=== PATIENT | female | born 1945 | race Caucasian/White ===

== ENCOUNTER 2018-07-27 08:12 | Inpatient (IN) ==
[2018-07-27] MEDS ORDERED: Metoprolol Tartrate 25 MG Tablet PO ONE (08:46)
[2018-07-27] MEDS ORDERED: Chlorhexidine Gluconate 2% 1 Pack (2 Cloths) TOPICAL ONE (08:46)
[2018-07-27] MEDS ORDERED: Dexamethasone Inj 20 MG/5 ML Vial ONE (08:57)
[2018-07-27] MEDS ORDERED: Sodium Chlor 0.9% Inj 250 ML ONE (08:57)
[2018-07-27] MEDS ORDERED: ceFAZolin 2 GM Premix Inj 2 GM/50 ML PIGGYBACK IV.SIG SCH (09:00)
[2018-07-27] MEDS ORDERED: Dexamethasone Inj 20 MG/5 ML Vial IV.PUSH SCH (09:00)
[2018-07-27] MEDS ORDERED: Sodium Chlor 0.9% Inj 500 ML IV.SIG SCH (09:00)
[2018-07-27] MEDS ORDERED: Chlorhexidine 4% Topical 120 APPLIC/120 ML Bottle TOPICAL SCH (09:00)
[2018-07-27] MEDS ORDERED: TRANEXAMIC ACID IV.SIG SCH (09:00)
[2018-07-27] MEDS ORDERED: Sodium Chlor 0.9% Inj 73.07 ML, Ropivacaine 0.5% PF Inj 24.63 ML, Ketorolac Inj 30 MG, ... P-ARTICULR SCH ×5 (09:00)
[2018-07-27] MEDS ORDERED: Vancomycin Inj 1,000 MG in Sodium Chlor 0.9% Inj 250 ML IV.SIG SCH (09:00)
[2018-07-27] MEDS ORDERED: SODIUM CHLOR 0.9% IV.SIG SCH (09:00)
[2018-07-27] MEDS ORDERED: HYDROmorphone PF Inj 2 MG/ML Vial ONE (11:10)
[2018-07-27] MEDS ORDERED: Lidocaine PF 1% Inj 5 ML Syringe OTHER ONE (11:15)
[2018-07-27] MEDS ORDERED: Bisacodyl 10 MG Supp RECTAL PRN (13:01)
[2018-07-27] MEDS ORDERED: Aluminum/Magnesium/Simethacone Susp 30 ML UDC PO PRN (13:01)
[2018-07-27] MEDS ORDERED: SODIUM CHLOR 0.9% IV.SIG ONE (13:01)
[2018-07-27] MEDS ORDERED: Morphine Inj 4 MG/ML Vial IV.PUSH PRN (13:01)
[2018-07-27] MEDS ORDERED: TRANEXAMIC ACID IV.SIG ONE (13:01)
[2018-07-27] MEDS ORDERED: Post-op Orders (for Pharmacy) OTHER STA (13:01)
--- NOTE | 2018-07-27 13:04 | P.OP ---
- Preoperative Diagnosis (1) Osteoarthritis of right knee - Postoperative Diagnosis (1) Osteoarthritis of right knee Date of procedure: 07/27/18 Procedure: Right total knee arthroplasty [facility], [facility] Surgeon: Simeon Mckoy MD [facility] Nurse Staff: NOAH Liu The surgical procedure was assisted by my Advanced Registered Nurse Practitioner. My ACTION INSTALLER presence was necessary throughout this case for the manipulation and positioning of the surgical extremity. My ACTION INSTALLER was assisting me throughout the duration of this procedure. The skill set of an Advance Registered Nurse Practitioner was medically necessary to complete this procedure. During the surgical case, the surgical dental assistant was working at the back table and the Advance Registered Nurse Practitioner was directly assisting me. Operation and Findings: IMPLANTS: DePuy Attune: Patella: size 32. Femur, posterior stabilized size 5. Tibia, rotating platform size 4. Tibial insert, rotating platform, posterior stabilized size 5 mm thickness. ESTIMATED BLOOD LOSS: 125 cc TOURNIQUET TIME: 40 minutes at 250 mmHg pressure. JUSTIFICATION FOR PROCEDURE: The patient has end-stage osteoarthritis to the knee. There is an attached conservative measures pathway form in the chart that describes the nonoperative measures that were undertaken prior to consideration of surgical management. The patient understood the risks and benefits of surgical management. See my office notes for further details PROCEDURE: The patient was brought back to the operative theatre. Adequate anesthesia was obtained. The patient received intravenous vancomycin and Ancef. The lower extremity was prepped and draped in the usual sterile fashion.The leg was exsanguinated, the tourniquet was raised. A standard anterior incision was performed followed by medial parapatellar arthrotomy was performed. End-stage arthritis was identified. Osteotomy of the patella was performed. We drilled holes for the patella. We trialed the patella component. We placed an intramedullary guide into the distal femur. We ultimately resected 11 mm off of the distal femur in 5 degrees of valgus. The remnants of the ACL and PCL were resected. Osteotomy of the proximal tibia was performed, resecting 5 mm off of the medial side. This was done with 3 degrees of posterior slope using an extramedullary guide. The distal end of the guide was placed in the mid aspect of the ankle. The femur was sized, and four chamfer cuts were completed in 3 of external rotation. We then cut the central box in the distal femur to replace the PCL. We resected the remnants of the menisci and removed osteophytes off of the femur and tibia. We then trialed the knee. We punched the tibia for the keel, and then used standard technique to cement in components. Excess cement was removed. We trialed the knee again and the final polyethylene thickness was chosen to provide extension to 0 degrees, and flexion of 140 degrees to gravity. The ligaments were appropriately balanced. Lateral release was necessary to obtain excellent patellofemoral tracking. The tourniquet was released and adequate hemostasis was obtained. An intra- articular injection of a ropivacaine cocktail was injected. The posterior knee was inspected for excess cement, which was removed. The final polyethylene was put into position after thorough irrigation. We then closed deep fascia with a #2 Stratafix followed by skin with 2-0 Vicryl followed by Dermabond dressing. Postop plan is to weight-bear as tolerated. DVT prophylaxis will be performed with SCDs, SARAH norton, early mobilization, and Lovenox followed by aspirin.
[2018-07-27] MEDS ORDERED: fentaNYL Citrate Inj 100 MCG/2 ML Ampul ONE (13:34)
[2018-07-27] MEDS ORDERED: *morphine SULFATE 4 MG/ML PERIprocedure ONLY ONE ×2 (13:43→14:26)
[2018-07-27] MEDS: Sod Chloride 0.9% Inj 1,000 ML IV.CONT SCH (13:45)
--- NOTE | 2018-07-27 15:14 | XR ---
EXAM DATE: 07/27/2018 1:01 PM EDT AGE/SEX: 73 years / Female INDICATIONS: Post op right knee surgery. CLINICAL DATA: This is the patient's initial encounter. Patient reports that signs and symptoms have been present for 1 day and indicates a pain score of 0/10. MEDICAL/SURGICAL HISTORY: None. None. COMPARISON: No prior exams available for comparison. FINDINGS: Two views of the knee reveal a total knee prosthesis in good position. No fracture or dislocation is observed. Soft tissues are unremarkable. No joint effusion is seen. Air is seen within the joint. CONCLUSION: Total knee arthroplasty in good position. Electronically signed by: Christiano Paiz MD 07/27/2018 3:13 PM EDT
--- NOTE | 2018-07-27 15:40 | P.DCO ---
- Physical Therapy Physical Therapy: Gait training, Transfer training, bed to chair Knee: Total knee Right Lower Extremity Weight Bearing: Weight bearing as tolerated Right Lower Extremity Range of Motion: Active ROM - Nursing Nursing: Capo rodriguez Dressing changes: Do not change dressing Additional instructions: First dressing change in the office - Certification Need for Home Health services: I have seen patient Lala Rachel on 07/27/18. My clinical findings support the need for the requested home health care services because: Need for Home Health Services: Limited ability to care for self, High risk of falls Homebound Certification: I certify that my clinical findings support that this patient is homebound because: Homebound Certification: Post-op weakness, Unsteady gait/balance
[2018-07-27] MEDS ORDERED: Influenza (Quadrivalent) Vaccine 0.5 ML Syringe IM ONE (17:30)
[2018-07-27] MEDS: Senna/Docusate Sodium 8.6/50 MG Tablet PO SCH (20:16)
[2018-07-27] MEDS: Multivitamin/Minerals Therapeutic Tablet PO SCH (20:21)
[2018-07-27] MEDS ORDERED: Zolpidem Tartrate 5 MG Tablet PO PRN (21:00)
[2018-07-28] MEDS: Sod Chloride 0.9% Inj 1,000 ML IV.CONT SCH (03:14)
[2018-07-28 07:08] LABS: Hemoglobin 11.1 gm/dL (11.6-15.3)
--- NOTE | 2018-07-28 07:19 | P.PNOP ---
Subjective Interval history: The patient is resting comfortably in bed in no acute distress. The patient reports minimal pain to the right knee. The patient has been ambulatory. The patient is requesting to go home today with home health. Physical Exam Vital signs: Vital Signs 07/27/18 09:08 07/27/18 09:19 07/27/18 13:28 Temperature 98.7 F 98.5 F Pulse Rate 75 74 95 H Respiratory Rate 18 10 L Blood Pressure 177/93 H 147/82 H Pulse Oximetry 98 99 94 L 07/27/18 13:30 07/27/18 13:45 07/27/18 14:00 Temperature Pulse Rate 95 H 91 H 91 H Respiratory Rate 12 12 11 L Blood Pressure 141/76 H 147/81 H 140/77 Pulse Oximetry 94 L 92 L 92 L 07/27/18 14:15 07/27/18 14:30 07/27/18 14:45 Temperature Pulse Rate 117 H 118 H 114 H Respiratory Rate 13 12 13 Blood Pressure 141/84 H 138/84 137/82 Pulse Oximetry 92 L 93 L 93 L 07/27/18 15:00 07/27/18 15:15 07/27/18 15:30 Temperature 98.7 F Pulse Rate 112 H 115 H 110 H Respiratory Rate 15 20 11 L Blood Pressure 132/81 136/84 152/91 H Pulse Oximetry 93 L 95 94 L 07/27/18 15:45 07/27/18 16:36 07/27/18 16:48 Temperature 97.2 F L Pulse Rate 108 H 104 H Respiratory Rate 16 14 Blood Pressure 150/80 H 151/93 H Pulse Oximetry 95 94 L 07/27/18 18:53 07/28/18 00:00 07/28/18 04:00 Temperature 97.1 F L 97.5 F L 97.2 F L Pulse Rate 104 H 89 81 Respiratory Rate 16 18 17 Blood Pressure 156/96 H 155/91 H 153/82 H Pulse Oximetry 95 96 94 L Intake & Output 07/27/18 07/28/18 07/28/18 18:59 06:59 18:59 Intake Total 1687.6 / 1687.6 1200 / 1200 Output Total 100 / 100 Balance 1587.6 / 1587.6 1200 / 1200 Weight 76 kg Intake: IV 207.6 / 207.6 1200 / 1200 NS Inj 1,000 ML @ 80 mls/hr IV. 1000 / 1000 CONT .[id number] ON LICENSE OF [facility] Rx#:[id number] Cyklokapron Inj 760 MG In NS 107.6 / 107.6 Inj 100 ML @ 200 mls/hr IV.SIG ONCE ONE Rx#:[id number] Ancef Inj 1,000 MG In NS Inj 100 / 100 200 / 200 100 ML @ 200 mls/hr IV.SIG Q6H ON LICENSE OF [facility] Rx#:[id number] Oral 480 / 480 Anesthesia Amount 1000 / 1000 Output: Estimated Blood Loss 100 / 100 Other: # Voids 1 4 Date of Last Bowel Movement 07/26/18 07/26/18 07/26/18 # Bowel Movements 0 Weight On Admission 76 kg Narrative: The patient's dressing is clean, dry, and intact. EHL/TA/G are intact. 2+ pedal pulse. The patient's calf is soft and nontender. Sensation is intact to light touch distally. Results - Labs CBC & Chem 7: 07/28/18 04:40 Laboratory Results - last 24 hr 07/27/18 07/28/18 08:45 04:40 Hgb 11.1 L Hct 35.0 Blood Type O Positive Blood Type Recheck Required Antibody Screen Negative - Imaging Impressions Knee X-Ray 07/27/18 13:01 CONCLUSION: Total knee arthroplasty in good position. - Procedures Right total knee arthroplasty Assessment and Plan - Problem List (1) Status post total knee replacement, right Code(s): Z96.651 - Presence of right artificial knee joint Status: Acute (2) Osteoarthritis of right knee Code(s): M17.11 - Unilateral primary osteoarthritis, right knee Status: Acute - Assessment and Plan POD #1: [Right] total knee arthroplasty 1. Weightbearing as tolerated on [right] lower extremity. 2. Lovenox followed by aspirin for DVT prophylaxis. 3. Ice as needed for swelling. 4. Stable per ortho for discharge to home health today after class. 5. The patient will follow up with Dr. Mckoy and/or NOAH Hogan as previously scheduled.
[2018-07-28] MEDS ORDERED: Dexamethasone Inj 20 MG/5 ML Vial IV.PUSH ONE (08:00)
[2018-07-28] MEDS: Multivitamin/Minerals Therapeutic Tablet PO SCH (08:02)
[2018-07-28] MEDS: Senna/Docusate Sodium 8.6/50 MG Tablet PO SCH (08:02)
[2018-07-28] MEDS ORDERED: Lisinopril 20 MG Tablet PO SCH (09:00)
[2018-07-28] MEDS ORDERED: Pantoprazole Sodium 20 MG DR Tablet PO SCH (09:00)
[2018-07-28 12:11] VITALS: BP 166/73; PULSE 87; TEMP 97.7; O2SAT 92
[2018-07-28 12:57] VITALS: RESP 18
[2018-07-28] MEDS ORDERED: Enoxaparin Inj 40 MG/0.4 ML Syringe SQ SCH (13:00)
--- NOTE | 2018-07-29 09:57 | P.DS ---
Date of admission: 07/27/18 08:12 Primary care physician: Margarito Mclean MD Attending physician on discharge: Simeon Mckoy Anticipated date of discharge: 07/28/18 Brief History from admission: The patient was admitted to the hospital for severe osteoarthritis of the right knee to have a right total knee arthroplasty. DS: Diagnosis - Discharge Diagnosis (1) Status post total knee replacement, right Status: Acute (2) Osteoarthritis of right knee Status: Acute DS: Summary Hospital Course: The patient was admitted to the hospital for severe osteoarthritis of the [right ] knee to have a [right] total knee arthroplasty. The patient's surgery went well with no complication. The patient is on a [regular] diet. The patient's DVT prophylaxis includes use of [Lovenox followed by aspirin]. The patient is weightbearing as tolerated. The patient was discharged [home with home health] and will follow up in the office with Dr. Mckoy and/or NOAH Hogan as previously scheduled. - Time Spent with Patient Total time spent providing and/or coordinating discharge services: Greater than 30 minutes - Quality: VTE Deep Vein Thrombosis/Pulmonary Embolism Present on Admission: No Exam Vital signs: Vital Signs 07/28/18 12:00 07/28/18 12:34 Temperature 97.7 F Pulse Rate 87 Respiratory Rate 21 18 Blood Pressure 166/73 H Pulse Oximetry 92 L Intake & Output 07/28/18 07/29/18 07/29/18 18:59 06:59 18:59 Other: Date of Last Bowel Movement 07/26/18 Narrative: The patient's dressing is clean, dry, and intact. EHL/TA/G are intact. 2+ pedal pulse. The patient's calf is soft and nontender. Sensation is intact to light touch distally. Results Procedures completed during hospitalization: Right total knee arthroplasty - Impressions ITS Impressions Knee X-Ray 07/27/18 13:01 CONCLUSION: Total knee arthroplasty in good position. Discharge Plan - Discharge Disposition Patient Disposition: W/Home Health Service - Discharge Condition Condition: Stable - Discharge Order Discharge Orders: Discharge Order (Routine); Ordered 07/27/18 Ordered By: Guanako Trinidad - Discharge Details Anticipated Discharge Date: 07/28/18 - Physicians Team Primary Care Provider: Margarito Mclean Attending Provider: Simoen Mckoy - Rxs /Orders / Referrals /Forms Prescriptions: Continue ascorbic acid (vitamin C) [Vitamin C] 500 mg Tablet 500 mg PO DAILY atorvastatin 20 mg Tablet 20 mg PO HS cholecalciferol (vitamin D3) [Vitamin D3] 5,000 unit Tablet 5,000 unit PO DAILY lisinopril 20 mg Tablet 20 mg PO DAILY multivitamin Tablet 1 tab PO DAILY omeprazole 20 mg Capsule,Delayed Release(Dr/Ec) 20 mg PO DAILY vitamin B complex Tablet 1 tab PO DAILY Discontinued aspirin 325 mg Tablet 325 mg PO DAILY Ambulatory Orders / Order Sets / DME: Adjustable Commode 3-in-1 (1 each) (Routine) Location: Determined by Patient Ordered By: Guanako Trinidad CPM - Continuous Passive Motion Machine (1 each) (Routine) Location: Determined by Patient Ordered By: Guanako Trinidad Walker With Front Wheels (1 each) (Routine) Location: Determined by Patient Ordered By: Guanako Trinidad Referrals: Margarito Mclean MD [Primary Care Provider] - See Instructions Simeon Mckoy MD [Physician] - See Instructions (The patient should follow with Dr. Mckoy or Bassam Trinidad APRN as previously scheduled) - Discharge Instructions Patient Printed Instructions: How to Choose and Use a Walker (GEN), Fall Prevention (DC), Knee Replacement (DC), How to Transfer a Person Safely (DC), Deep Vein Thrombosis Prevention (DC) Additional Instructions: TAKE MEDICATIONS PRESCRIBED FOLLOW UP WITH SCHEDULED IN CASE OF EMERGENCY CALL 911 OR RETURN TO [facility] - Post Discharge Care Plan Care Plan Goals: Discharge Care Plan Goals for Total Knee Replacement You have undergone knee replacement surgery. Your doctor replaced your painful joint with an artificial joint to relieve pain and restore movement. Here are some goals to help you heal well. Directions to Meet your Goals: 1. Activity & Exercises: * Take pain medicine as directed by your doctor. * Sit in chairs with arms. The arms make it easier for you to stand up or sit down. * Dont sit for more than 30 to 45 minutes at one time. * Nap if you are tired, but dont stay in bed all day. * Sleep with a pillow under your ankle, not your knee. Be sure to change the position of your leg during the night. * Wear the support stockings you were given in the hospital as directed by your surgeon. 2. Prevent Falls/Injury: The aceves to successful recovery is movement with walking and exercising your knee as directed by your doctor. * Arrange your household to keep the items you need handy. Keep everything else out of the way. * Remove items that may cause you to fall, such as throw rugs and electrical cords. * Use nonslip bath mats, grab bars, an elevated toilet seat, and a shower chair in your bathroom * Sit on a shower stool or chair when you shower to keep from falling. * Until your balance, flexibility, and strength improve, use a cane, crutches, a walker, handrails, or someone to help you. * Keep your hands free by using a backpack, zaid pack, apron, or pockets to carry things * Walk up and down stairs with support. Try one step at a time. Use the railing if possible. * Dont drive until your doctor says its OK. * Dont drive while you are taking opioid pain medicine. 3. Precautions: * Prevent infection. Any infection will need to be treated immediately. Call your doctor right away if you think you might have an infection. * Tell your dentist that you have an artificial joint and take antibiotics as prescribed before any dental work. * Tell all your healthcare providers about your artificial joint before any medical procedure. * Maintain a healthy weight. Get help to lose any extra pounds. Added body weight puts stress on the knee. * Your medications may include blood-thinning medicine to prevent blood clots or antibiotics to prevent infection-prevent any falls or cuts 4. Incision Care: * Prevent infection by washing your hands often. If an infection occurs, it will need to be treated right away. * Call your doctor right away if you think you may have an infection. Symptoms include a fever or an incision that leaks white, green, or yellow fluid. * Don't soak your incision in water until your doctor says its OK. This means no hot tubs, bathtubs, or swimming pools. * Follow your doctor's instructions for changing the dressing. * Dont rub the incision, or apply creams or lotions to it. * If you notice any redness or drainage around the bandage site, contact your surgeon's office immediately. 5. Follow-Up: Do Not miss your follow-up appointment. Keep up with all your appointments and yearly check ups When to call your doctor: Call your doctor right away if you have: Fever of 100.4F (38C) or higher, or as directed by your doctor Shaking chills Stiffness, or inability to move the knee Increased swelling in your leg Increased redness, tenderness, or swelling in or around the knee incision Drainage from the knee incision Increased knee pain Call 911: Call 911 right away if you have: Chest pain Shortness of breath Any pain or tenderness in your calf
== END 2018-07-28 14:08 | disposition home health service (06) ==
LOC: HSDI 08:12 → N06 16:20
PROVIDERS: ADMIT Orthopaedic Surgery; ATTEND Orthopaedic Surgery

== ENCOUNTER 2018-07-30 09:18 | Observation (INO) ==
[2018-07-30] MEDS ORDERED: Sod Chloride 0.9% Inj 1,000 ML IV.SIG ONE (10:07)
[2018-07-30] MEDS ORDERED: Diatrizoate Meglum/Diatrizoate Sod Liq 9 ML UDC PO ONE ×2 (10:37→10:38)
--- NOTE | 2018-07-30 10:41 | ED ---
HPI General Chief Complaint: Abdominal Pain Stated Complaint: full knee replacment x wednesday-constipation Time Seen by Provider: 07/30/18 09:48 Source: patient and family Mode of arrival: ambulatory Limitations: no limitations History of Present Illness HPI narrative: Patient is a 73-year-old female who presents to the emergency room with complaints of constipation and abdominal pain. Patient reports that on Wednesday, she had a right total knee replacement by Dr. Schwartz. Patient has been taking hydrocodone 5 mg for pain relief. Patient reports that for the past few days, she has had problems with constipation. Reports that she last had a bowel movement on Wednesday. Patient normally has a normal bowel movement every day. Patient reports that she called Dr. Schwartz's office and was told to start on Dulcolax as well as Colace, she did start this yesterday with no relief of symptoms. Patient did take MiraLAX this morning, reports that she was also instructed to take Prune juice as well as milk of magnesia, but has not been able to keep anything down. Reports that she did feel nauseous and she ended up vomiting her MiraLAX. Patient reports diffuse abdominal pain, reports history of an appendectomy in the past as well as a hysterectomy. Denies fever/ chills. No other complaints. Related Data Home Medications Medication Instructions Recorded Confirmed ascorbic acid (vitamin C) [Vitamin 500 mg PO DAILY 07/11/18 07/30/18 C] atorvastatin 20 mg PO HS 07/11/18 07/30/18 cholecalciferol (vitamin D3) 5,000 unit PO DAILY 07/11/18 07/30/18 [Vitamin D3] lisinopril 20 mg PO DAILY 07/11/18 07/30/18 multivitamin 1 tab PO DAILY 07/11/18 07/30/18 omeprazole 20 mg PO DAILY 07/11/18 07/30/18 vitamin B complex 1 tab PO DAILY 07/11/18 07/30/18 enoxaparin [Lovenox] 40 mg SUBCUT DAILY 07/30/18 07/30/18 hydrocodone-acetaminophen 1 tab PO Q4-6H PRN 07/30/18 07/30/18 Allergies Allergy/AdvReac Type Severity Reaction Status Date / Time codeine AdvReac Severe Shortness Verified 07/30/18 09:45 of Breath Review of Systems ROS: all other systems reviewed are negative [facility] History History Provided By: Patient Medical History Medical History GERD (gastroesophageal reflux disease) (Acute) High cholesterol (Acute) History of hysterectomy (Acute) Hypertension (Acute) Rotator cuff arthropathy of right shoulder (Acute) Surgical History Surgical History H/O arthroscopy of right knee (Acute) H/O bilateral breast reduction surgery (Acute) History of appendectomy (Acute) History of carpal tunnel release (Acute) History of surgery on arm (Acute) Hx of tonsillectomy (Acute) Status post cataract extraction of both eyes with insertion of intraocular lens (Acute) Social History Social History Substance History: No History of Abuse Second Hand Smoke Exposure: No Smoking Status: Former smoker How Often Do You Have a Drink Containing Alcohol: 2 to 3 times a week Recent Travel in [facility] within the Last 8 Weeks: No Recent Out of Country Travel within the Last 8 Weeks: No Exam Narrative Exam Narrative: GENERAL: Moderate distress SKIN: Focused skin assessment warm/dry. HEAD: Atraumatic. Normocephalic. EYES: Pupils equal and round. No scleral icterus. No injection or drainage. ENT: No nasal bleeding or discharge. Mucous membranes pink and moist. NECK: Trachea midline. No JVD. CARDIOVASCULAR: Regular rate and rhythm. No murmur appreciated. RESPIRATORY: No accessory muscle use. Clear to auscultation. Breath sounds equal bilaterally. GASTROINTESTINAL: Abdomen soft, diffusely-tender, nondistended. Hepatic and splenic margins not palpable. Rectal exam: no stool in rectal vault - no fecal impaction MUSCULOSKELETAL: No obvious deformities. No clubbing. No cyanosis. No edema. NEUROLOGICAL: Awake and alert. No obvious cranial nerve deficits. Motor grossly within normal limits. Normal speech. PSYCHIATRIC: Appropriate mood and affect; insight and judgment normal. Course Reevaluation(s) Reevaluation #1: Patient reevaluated, patient unable to hold down the Gastrografin. Patient with continuous nausea and vomiting with abdominal pain. Patient with no allergy to morphine, she has tolerated this in the past. Patient will be given a dose of morphine as well as a dose of Zofran. Time: 11:28 Initial Documented Vital Signs Temperature 98.9 F 07/30/18 09:40 Pulse Rate 83 07/30/18 09:40 Respiratory Rate 16 07/30/18 09:40 Blood Pressure 143/76 H 07/30/18 09:40 Pulse Oximetry 94 L 07/30/18 09:40 Last Documented Vital Signs Temperature 98.9 F 07/30/18 09:40 Pulse Rate 114 H 07/30/18 11:05 Respiratory Rate 16 07/30/18 11:05 Blood Pressure 161/108 H 07/30/18 11:05 Pulse Oximetry 92 L 07/30/18 11:05 Medical Decision Making MDM Narrative Medical decision making narrative: During the course of the patients emergency department visit, the patients history, examination, and differential diagnosis were reviewed with the patient. The patient was placed on a shelter monitor with oximetry and frequent blood pressure monitoring. The patient had an IV access obtained and blood work sent for analysis. The patient was initially provided IVF as well as gastrograffin and IV zofran Patient now tachycardic with a HR of 119 - wbc 21.6 - patient meets sirs criteria, she will be panculture, lactic acid ordered, vanco and zosyn ordered CT of the abdomen pelvis shows inflammatory stranding extending from the region of the pancreatic head inferiorly. There is no ductal dilation or peripancreatic fluid collections. Patient with mild pancreatitis. Patient's lipase is 66. She has small to moderate amount of stool in the rectum. There is no significant colonic stool or obstruction Patient is feeling mildly better though she does have SIRS criteria as well as mild pancreatitis. Plan to observe her in the hospital for IV fluids and antiemetics for pain control. I did review all labs and all studies as well as all incidental findings with patient, she is agreeable to admission to the hospital. Case reviewed with Dr. Morrell who accepts pt to service Medical Screen Exam Complete: Yes Emergency Medical Condition: Yes Differential Diagnosis Differential Diagnosis: Differential includes small bowel obstruction, sepsis, UTI, cholecystitis, fecal impaction, gastritis, gastritis, pancreatitis Medical Records Medical records reviewed: Yes I reviewed the patient's medical records. Lab Data Lab results reviewed: Yes I reviewed the patient's lab results. Result diagrams: 07/30/18 10:30 07/30/18 10:30 Lab Results 07/30/18 07/30/18 07/30/18 Range/Units 10:30 10:30 10:50 CBC w Diff Auto diff final WBC 21.6 H (4.0-11.0) th/mm3 RBC 3.39 L (4.00-5.30) mil/mm3 Hgb 11.3 L (11.6-15.3) gm/dL Hct 32.7 L (35.0-46.0) % MCV 96.2 (80.0-100.0) fL MCH 33.4 (27.0-34.0) pg MCHC 34.7 (32.0-36.0) % RDW 13.3 (11.6-17.2) % Plt Count 322 (150-450) th/mm3 MPV 9.2 (7.0-11.0) fL Neut % (Auto) 92.8 H (16.0-70.0) % Lymph % (Auto) 4.0 L (9.0-44.0) % [place] % (Auto) 2.1 (0.0-8.0) % Eos % (Auto) 0.0 (0.0-4.0) % Baso % (Auto) 1.1 (0.0-2.0) % Neut # (Auto) 20.0 H (1.8-7.7) th/mm3 Lymph # (Auto) 0.9 L (1.0-4.8) th/mm3 [place] # (Auto) 0.5 (0.0-0.9) th/mm3 Eos # (Auto) 0.0 (0.0-0.4) th/mm3 Baso # (Auto) 0.2 (0.0-0.2) th/mm3 WBC Differential . Differential Comment . Sodium 140 (136-145) meq/L Potassium 3.0 L (3.5-5.1) meq/L Chloride 98 (98-107) meq/L Carbon Dioxide 30.9 (21.0-32.0) meq/L Anion Gap 11 (5-15) meq/L BUN 9 (7-18) mg/dL Creatinine 0.59 (0.50-1.00) mg/dL Estimated GFR Greater than 89 (>89) mL/min Random Glucose 92 (74-106) mg/dL Calcium 8.1 L (8.5-10.1) mg/dL Total Bilirubin 0.9 (0.2-1.0) mg/dL AST 23 (15-37) U/L ALT 16 (10-53) U/L Alkaline Phosphatase 79 (45-117) U/L Total Protein 6.7 (6.4-8.2) g/dL Albumin 2.8 L (3.4-5.0) g/dL Lipase 66 L (73-393) U/L Urine Color Yellow (Yellw/Straw) Urine Clarity Clear (Clear) Urine pH 7.0 (5.0-8.5) Ur Specific [place] 1.010 (1.002-1.035) Urine Protein Negative (Neg-Trace) mg/dL Urine Glucose (UA) Negative (Negative) mg/dL Urine Ketones Negative (Negative) mg/dL Urine Occult Blood Trace (Negative) Urine Nitrate Negative (Negative) Urine Bilirubin Negative (Negative) Urine Urobilinogen 0.2 (Less than 2) mg/dL Ur Leukocyte Esterase Negative (Negative) Urine RBC 0-3 (0-3) /hpf Urine WBC 0-5 (0-5) /hpf Micro UA Comment Culture not ind Ur Microscopic Review Microscopic reviewed Urine Culture Comments Culture not ind Imaging Data Attestation: I personally reviewed and interpreted this imaging study as follows : Radiologist's impression: Abdomen/Pelvis CT 07/30/18 10:07 CONCLUSION: 1. Inflammatory stranding extending from the region the pancreatic head inferiorly. Pancreas enhances uniformly and there is no ductal dilatation or peripancreatic fluid collections. Findings are most consistent with mild pancreatitis. Clinical correlation with pancreatic enzymes is recommended. 2. Iwwho-iz-scbweqzv amount stool in the rectum. Otherwise, no evidence for significant colonic stool or obstruction. 3. Colonic diverticulosis without evidence for diverticulitis. Chest X-Ray 07/30/18 11:32 CONCLUSION: 1. No acute abnormality or significant interval change. Discharge Plan Discharge Disposition Patient Disposition: 30 Still Patient Discharge Condition Condition: Fair Discharge Details Diagnosis: SIRS (systemic inflammatory response syndrome), Increased nausea and vomiting, Acute pancreatitis, Acute hypokalemia Physicians Team ED Provider: Fariba Mock Primary Care Provider: Margarito Mclean Rxs /Orders / Referrals /Forms Prescriptions: No Action atorvastatin 20 mg Tablet 20 mg PO HS RF: 0 lisinopril 20 mg Tablet 20 mg PO DAILY RF: 0 omeprazole 20 mg Capsule,Delayed Release(Dr/Ec) 20 mg PO DAILY RF: 0 multivitamin Tablet 1 tab PO DAILY RF: 0 ascorbic acid (vitamin C) [Vitamin C] 500 mg Tablet 500 mg PO DAILY RF: 0 vitamin B complex Tablet 1 tab PO DAILY RF: 0 cholecalciferol (vitamin D3) [Vitamin D3] 5,000 unit Tablet 5,000 unit PO DAILY RF: 0 hydrocodone-acetaminophen 5-325 mg Tablet 1 tab PO Q4-6H PRN (Reason: Acute Pain) RF: 0 enoxaparin [Lovenox] 40 mg/0.4 mL Syringe 40 mg SUBCUT DAILY RF: 0 Status ED Status: With Doctor
[2018-07-30 11:00] LABS: Baso # (Auto) 0.2 th/mm3 (0.0-0.2); Baso % (Auto) 1.1 % (0.0-2.0); Hematocrit 32.7 % (35.0-46.0); Hemoglobin 11.3 gm/dL (11.6-15.3); Lymph # (Auto) 0.9 th/mm3 (1.0-4.8); Mean Corpuscular HGB Conc 34.7 % (32.0-36.0); Mean Corpuscular Hemoglobin 33.4 pg (27.0-34.0); Mean Corpuscular Volume 96.2 fL (80.0-100.0); Mean Platelet Volume 9.2 fL (7.0-11.0); Mono # (Auto) 0.5 th/mm3 (0.0-0.9); Mono % (Auto) 2.1 % (0.0-8.0); Neut % (Auto) 92.8 % (16.0-70.0); Platelet Count 322 th/mm3 (150-450); Red Blood Count 3.39 mil/mm3 (4.00-5.30); Red Cell Distribution Width 13.3 % (11.6-17.2); White Blood Count 21.6 th/mm3 (4.0-11.0)
[2018-07-30 11:01] LABS: Bilirubin,Urine Negative (Negative); Clarity,Urine Clear (Clear); Color,Urine Yellow (Yellw/Straw); Glucose,Urine (UA) Negative (Negative); Leukocyte Esterase,Urine Negative (Negative); Nitrite,Urine Negative (Negative); Urobilinogen,Urine 0.2 mg/dL (Less than 2)
[2018-07-30 11:02] LABS: Chloride 98 meq/L (98-107); Sodium 140 meq/L (136-145)
[2018-07-30 11:06] LABS: Albumin 2.8 g/dL (3.4-5.0); Anion Gap 11 meq/L (5-15); Blood Urea Nitrogen 9 mg/dL (7-18); Calcium 8.1 mg/dL (8.5-10.1); Carbon Dioxide 30.9 meq/L (21.0-32.0); Glucose,Random 92 mg/dL (74-106); Lipase 66 U/L (73-393)
[2018-07-30 11:08] LABS: RBC,Urine 0-3 /hpf (0-3); WBC,Urine 0-5 /hpf (0-5)
[2018-07-30 11:09] LABS: Alanine Aminotransferase 16 U/L (10-53); Aspartate Aminotransferase 23 U/L (15-37); Glomerular Filtration Rate Greater Than 89 mL/min (>89)
[2018-07-30 11:11] LABS: Total Protein 6.7 g/dL (6.4-8.2)
[2018-07-30 11:12] LABS: Alkaline Phosphatase 79 U/L (45-117)
[2018-07-30] MEDS ORDERED: Potassium Chlor 20 mEq Premix 20 MEQ/100 ML PIGGYBACK IV.SIG ONE (11:12)
[2018-07-30] MEDS ORDERED: Sod Chloride 0.9% Inj 1,000 ML IV.SIG SCH ×2 (11:15→12:15)
[2018-07-30] MEDS ORDERED: Morphine Sulfate Inj 2 MG/ML Vial IV.PUSH ONE (11:26)
--- NOTE | 2018-07-30 11:59 | XR ---
EXAM DATE: 07/30/2018 11:32 AM EDT AGE/SEX: 73 years / Female INDICATIONS: Free air, abdomen pain, constipation, knee replacement surgery 4 days ago CLINICAL DATA: This is the patient's initial encounter. Patient reports that signs and symptoms have been present for 4 - 6 days and indicates a pain score of 5/10. MEDICAL/SURGICAL HISTORY: None. . knee replacement COMPARISON: [facility], CHEST 2V PA&LAT, 07/11/2018. . FINDINGS: No new focal pleural or parenchymal opacities. The cardiomediastinal contours are unremarkable. Osse ous structures are intact. CONCLUSION: 1. No acute abnormality or significant interval change. Electronically signed by: Markie Rodriguez MD 07/30/2018 11:58 AM EDT
[2018-07-30] MEDS ORDERED: Piperacil/Tazo 3.375 GM Premix 50 ML IV.SIG ONE (12:12)
[2018-07-30] MEDS ORDERED: Vancomycin Inj 1,000 MG in Sodium Chlor 0.9% Inj 250 ML IV.SIG ONE (12:12)
--- NOTE | 2018-07-30 12:46 | CT ---
EXAM DATE: 07/30/2018 11:50 AM EDT AGE/SEX: 73 years / Female INDICATIONS: Abdomen pain and constipation CLINICAL DATA: This is the patient's initial encounter. Patient reports that signs and symptoms have been present for 3 days and indicates a pain score of 10/10. MEDICAL/SURGICAL HISTORY: Gastroesophageal reflux disease. Hypertension. Hysterectomy. Append ectomy. Tonsillectomy. ORAL CONTRAST: Partial prescribed oral contrast ingested. RADIATION DOSE: 15.50 CTDI (mGy) COMPARISON: No prior exams available for comparison. TECHNIQUE: Multiple contiguous axial images were obtained through the abdomen and pelvis following b olus infusion of 98ML ml Omnipaque 350 (iohexol) nonionic water-soluble contrast as a single exam d ose. Partial prescribed oral contrast ingested. Using automated exposure control and adjustment of t mA and/or kV according to patient size, radiation dose was kept as low as reasonably achievable to obtain optimal diagnostic quality images. DICOM format image data is available electronically for r eview and comparison. FINDINGS: LOWER LUNGS: Minimal groundglass opacities at the lung bases. LIVER: The liver has a homogeneous density without space-occupying lesion. There is no dilation of t biliary tree. No calcified gallstones. SPLEEN: Homogeneous density without enlargement. PANCREAS: There is ill-defined stranding extending from the region of the pancreatic head inferiorly . Pancreas demonstrates normal enhancement without significant ductal dilatation. Subcentimeter cysti c lesion in the inferior pole of the left kidney is too small to fully characterize. KIDNEYS: Kidneys demonstrate symmetrical enhancement and are symmetrical in size without evidence fo r radiopaque renal calculi or hydronephrosis. ADRENAL GLANDS: Unremarkable. AORTA: Marybel-aneurysmal. BOWEL/MESENTERY: Mild sigmoid diverticulosis. Femcs-qr-hajgfvds amount of stool in the rectum. Scatt ered colonic diverticula. Colon is otherwise unremarkable. Bowel loops are normal in caliber. No free fluid or drainable fluid collections. ABDOMINAL WALL: Intact. RETROPERITONEUM: No evidence of adenopathy in the retrocrural, para-aortic, or deep pelvic regions. BLADDER: Contours are smooth. REPRODUCTIVE: Uterus is surgically absent. BONY STRUCTURES: Degenerative spondylosis of the lower lumbar spine. CONCLUSION: 1. Inflammatory stranding extending from the region the pancreatic head inferiorly. Pancreas enhance s uniformly and there is no ductal dilatation or peripancreatic fluid collections. Findings are most consistent with mild pancreatitis. Clinical correlation with pancreatic enzymes is recommended. 2. Aordc-bt-vrnjnrxy amount stool in the rectum. Otherwise, no evidence for significant colonic stoo l or obstruction. 3. Colonic diverticulosis without evidence for diverticulitis. Electronically signed by: Markie Rodriguez MD 07/30/2018 12:45 PM EDT
[2018-07-30] MEDS ORDERED: Bisacodyl 10 MG Supp RECTAL PRN (16:03)
[2018-07-30] MEDS ORDERED: Acetaminophen 325 MG Tablet PO PRN (16:03)
[2018-07-30] MEDS ORDERED: Temazepam 15 MG Capsule PO PRN (16:03)
[2018-07-30] MEDS ORDERED: Naloxone Inj 0.4 MG/ML Vial IV.PUSH PRN (16:26)
--- NOTE | 2018-07-30 16:26 | P.HP ---
History of Present Illness Primary Care Physician: Margarito Mclean MD Chief Complaint: Abdominal pain/Nausea and vomiting History of Present Illness: 73-year-old who past medical history of hypertension who recently had right total knee replacement 07/27/18 presented to the ED acute abdominal pain with radiation to her back associated with nausea and vomiting. After patient underwent right total knee replacement, was discharged home on narcotics. Patient complained of constipation for which she was prescribed Dulcolax as well as Colace. Patient last bowel movement prior to today was on Wednesday. However while in the ED, patient had a bowel movement. A CT abdomen in the ED reveals mild pancreatitis despite normal lipase. Patient had elevated WBC but denies any febrile episode. She has no GI bleed. - Diagnosis (1) SIRS (systemic inflammatory response syndrome) (2) Increased nausea and vomiting (3) Acute pancreatitis (4) Acute hypokalemia (5) Status post total knee replacement, right PMFSH - History History Provided By: Patient - Medical History Medical History: Medical History (Last Reviewed 07/30/18 @ 10:47 by Fariba Mock) GERD (gastroesophageal reflux disease) High cholesterol History of hysterectomy Hypertension Rotator cuff arthropathy of right shoulder - Surgical History Surgical History: Surgical History (Last Reviewed 07/30/18 @ 10:47 by Fariba Mock) H/O arthroscopy of right knee H/O bilateral breast reduction surgery History of appendectomy History of carpal tunnel release History of surgery on arm Hx of tonsillectomy Status post cataract extraction of both eyes with insertion of intraocular lens - Family History Family History: Family History (Last Updated 07/30/18 @ 16:25 by Abdoul Morrell MD) Other No history of heart disease - Tobacco History Second Hand Smoke Exposure: No Smoking Status: Former smoker - Alcohol History How Often Do You Have a Drink Containing Alcohol: 2 to 3 times a week - Substance Use History Substance History: No History of Abuse - Travel History Recent Travel in the [place] Within the Last 8 Weeks: No Recent Travel Out of the Country Within the Last 8 Weeks: No - Immunization History Tetanus Immunization: >5 Years Medications and Allergies Active Medications: Active Medications Acetaminophen (Tylenol) 650 mg PO Q4H PRN PRN Reason: Temp > 100.4 Al Hydroxide/Mg Hydroxide (Milk Of Magnesia Liq) 30 ml PO Q12H PRN PRN Reason: Mild Constipation Atorvastatin Calcium (Lipitor) 20 mg PO HS JACLYN Bisacodyl (Dulcolax Supp) 10 mg RECTAL DAILY PRN PRN Reason: SEVERE CONSITIPATION Enalaprilat (Vasotec Inj) 2.5 mg IV.PUSH Q6H PRN PRN Reason: SBP>160, DBP>90 Enoxaparin Sodium (Lovenox Inj) 40 mg SQ DAILY JACLYN Sodium Chloride (Ns Inj) 1,000 mls @ 0 mls/hr IV.SIG BOLUS JACLYN Sodium Chloride (Ns Inj) 1,000 mls @ 0 mls/hr IV.SIG BOLUS JACLYN Last Infusion: 07/30/18 15:25 Dose: Infused Sodium Chloride (Ns Inj) 1,000 mls @ 100 mls/hr IV.CONT .Q10H JACLYN Lisinopril (Prinivil) 20 mg PO DAILY JACLYN Metoclopramide HCl (Reglan Inj) 5 mg IV.PUSH Q6HR PRN; Protocol PRN Reason: NAUSEA OR VOMITING Non-Formulary Medication (Omeprazole [Omeprazole]) 20 mg PO DAILY JACLYN Ondansetron HCl (Zofran Inj) 4 mg IV.PUSH Q6H PRN PRN Reason: NAUSEA OR VOMITING Pantoprazole Sodium (Protonix Inj) 40 mg IV.PUSH Q24H JACLYN Sodium Chloride (Ns Flush) 2 ml IV.FLUSH PRN PRN PRN Reason: FLUSH AFTER USING IV ACCESS Last Admin: 07/30/18 14:43 Dose: 2 ml Allergies Allergy/AdvReac Type Severity Reaction Status Date / Time codeine AdvReac Severe Shortness Verified 07/30/18 09:45 of Breath Home Medications Medication Instructions Recorded Confirmed Type ascorbic acid (vitamin C) [Vitamin 500 mg PO DAILY 07/11/18 07/30/18 History C] atorvastatin 20 mg PO HS 07/11/18 07/30/18 History cholecalciferol (vitamin D3) 5,000 unit PO DAILY 07/11/18 07/30/18 History [Vitamin D3] lisinopril 20 mg PO DAILY 07/11/18 07/30/18 History multivitamin 1 tab PO DAILY 07/11/18 07/30/18 History omeprazole 20 mg PO DAILY 07/11/18 07/30/18 History vitamin B complex 1 tab PO DAILY 07/11/18 07/30/18 History enoxaparin [Lovenox] 40 mg SUBCUT DAILY 07/30/18 07/30/18 History hydrocodone-acetaminophen 1 tab PO Q4-6H PRN 07/30/18 07/30/18 History Exam Vital signs: Vital Signs 07/30/18 09:40 07/30/18 10:35 07/30/18 10:45 Temperature 98.9 F Pulse Rate 83 112 H 119 H Respiratory Rate 16 16 Blood Pressure 143/76 H 173/94 H Pulse Oximetry 94 L 93 L 07/30/18 11:05 07/30/18 12:00 07/30/18 13:11 Temperature Pulse Rate 114 H 118 H 119 H Respiratory Rate 16 16 16 Blood Pressure 161/108 H 167/102 H Pulse Oximetry 92 L 93 L 07/30/18 13:30 07/30/18 14:00 07/30/18 14:41 Temperature Pulse Rate 105 H 110 H Respiratory Rate 16 16 16 Blood Pressure 166/77 H 173/87 H Pulse Oximetry 95 07/30/18 16:00 Temperature 98.9 F Pulse Rate 118 H Respiratory Rate 20 Blood Pressure 173/96 H Pulse Oximetry 94 L Intake & Output 07/29/18 07/30/18 07/30/18 18:59 06:59 18:59 Intake Total 2400 / 2400 Balance 2400 / 2400 Weight 78 kg Intake: IV 2400 / 2400 Zosyn 3.375 GM Premix 50 ML @ 50 / 50 100 mls/hr IV.SIG ONCE ONE Rx#: [id number] KCl 20 mEq Premix Inj 20 meq In 100 / 100 100 ml @ 50 mls/hr IV.SIG ONCE ONE Rx#:[id number] NS Inj 1,000 ML @ Wide Open IV. 1999 SIG BOLUS JACLYN Rx#:[id number] Vancomycin Inj 1,000 MG In NS 250 / 250 Inj 250 ML @ 250 mls/hr IV.SIG ONCE ONE Rx#:[id number] Other: Date of Last Bowel Movement 07/26/18 Narrative: GENERAL: NAD SKIN: Warm and dry. HEAD: Atraumatic. Normocephalic. EYES: Pupils equal and round. No scleral icterus. No injection or drainage. ENT: No nasal bleeding or discharge. Mucous membranes pink and moist. NECK: Trachea midline. No JVD. CARDIOVASCULAR: Regular rate and rhythm. RESPIRATORY: No accessory muscle use. Clear to auscultation. Breath sounds equal bilaterally. GASTROINTESTINAL: Abdomen soft, +tender, nondistended. Hepatic and splenic margins not palpable. +BS MUSCULOSKELETAL: Extremities without clubbing, cyanosis, or edema. No obvious deformities. NEUROLOGICAL: Awake and alert. No obvious cranial nerve deficits. Motor grossly within normal limits. Five out of 5 muscle strength in the arms and legs. Normal speech. PSYCHIATRIC: Appropriate mood and affect; insight and judgment normal. Results - Labs CBC & Chem 7: 07/30/18 10:30 07/30/18 10:30 Labs: Laboratory Results - last 24 hr 07/30/18 07/30/18 07/30/18 10:30 10:30 10:50 CBC w Diff Auto diff final WBC 21.6 H RBC 3.39 L Hgb 11.3 L Hct 32.7 L MCV 96.2 MCH 33.4 MCHC 34.7 RDW 13.3 Plt Count 322 MPV 9.2 Neut % (Auto) 92.8 H Lymph % (Auto) 4.0 L [place] % (Auto) 2.1 Eos % (Auto) 0.0 Baso % (Auto) 1.1 Neut # (Auto) 20.0 H Lymph # (Auto) 0.9 L [place] # (Auto) 0.5 Eos # (Auto) 0.0 Baso # (Auto) 0.2 WBC Differential . Differential Comment . Sodium 140 Potassium 3.0 L Chloride 98 Carbon Dioxide 30.9 Anion Gap 11 BUN 9 Creatinine 0.59 Estimated GFR Greater than 89 Random Glucose 92 Lactic Acid Calcium 8.1 L Total Bilirubin 0.9 AST 23 ALT 16 Alkaline Phosphatase 79 Total Protein 6.7 Albumin 2.8 L Lipase 66 L Urine Color Yellow Urine Clarity Clear Urine pH 7.0 Ur Specific [place] 1.010 Urine Protein Negative Urine Glucose (UA) Negative Urine Ketones Negative Urine Occult Blood Trace Urine Nitrate Negative Urine Bilirubin Negative Urine Urobilinogen 0.2 Ur Leukocyte Esterase Negative Urine RBC 0-3 Urine WBC 0-5 Micro UA Comment Culture not ind Ur Microscopic Review Microscopic reviewed Urine Culture Comments Culture not ind 07/30/18 13:04 CBC w Diff WBC RBC Hgb Hct MCV MCH MCHC RDW Plt Count MPV Neut % (Auto) Lymph % (Auto) [place] % (Auto) Eos % (Auto) Baso % (Auto) Neut # (Auto) Lymph # (Auto) [place] # (Auto) Eos # (Auto) Baso # (Auto) WBC Differential Differential Comment Sodium Potassium Chloride Carbon Dioxide Anion Gap BUN Creatinine Estimated GFR Random Glucose Lactic Acid 1.2 Calcium Total Bilirubin AST ALT Alkaline Phosphatase Total Protein Albumin Lipase Urine Color Urine Clarity Urine pH Ur Specific [place] Urine Protein Urine Glucose (UA) Urine Ketones Urine Occult Blood Urine Nitrate Urine Bilirubin Urine Urobilinogen Ur Leukocyte Esterase Urine RBC Urine WBC Micro UA Comment Ur Microscopic Review Urine Culture Comments - Imaging Impressions Abdomen/Pelvis CT 07/30/18 10:07 CONCLUSION: 1. Inflammatory stranding extending from the region the pancreatic head inferiorly. Pancreas enhances uniformly and there is no ductal dilatation or peripancreatic fluid collections. Findings are most consistent with mild pancreatitis. Clinical correlation with pancreatic enzymes is recommended. 2. [id number] amount stool in the rectum. Otherwise, no evidence for significant colonic stool or obstruction. 3. Colonic diverticulosis without evidence for diverticulitis. Chest X-Ray 07/30/18 11:32 CONCLUSION: 1. No acute abnormality or significant interval change. Caprini VTE Risk Assessment Caprini VTE Risk Assessment: Moderate/High Risk (score >= 2) Caprini Risk Assessment Model: Point Value = 1 Point Value = 2 Point Value = 3 Point Value = 5 Age 41-60 Minor surgery BMI > 25 kg/m2 Swollen legs Varicose veins or History of unexplained or recurrent spontaneous Oral contraceptives or hormone replacement Sepsis (< 1 month) Serious lung disease, including pneumonia (< 1 month) Abnormal pulmonary function Acute myocardial infarction Congestive heart failure (< 1 month) History of inflammatory bowel disease Medical patient at bed rest Age 61-74 Arthroscopic surgery Major open surgery (> 45 min) Laparoscopic surgery (> 45 min) Malignancy Confined to bed (> 72 hours) Immobilizing plaster cast Central venous access Age >= 75 History of VTE Family history of VTE Factor V Leiden Prothrombin [id number] Lupus anticoagulant Anticardiolipin antibodies Elevated serum homocysteine Heparin-induced thrombocytopenia Other congenital or acquired thrombophilia Stroke (< 1 month) Elective arthroplasty Hip, pelvis, or leg fracture Acute spinal cord injury (< 1 month) Prophylaxis Regimen: Total Risk Factor Score Risk Level Prophylaxis Regimen 0-1 Low Early ambulation 2 Moderate Order ONE of the following: *Sequential Compression Device (SCD) *Heparin 5000 units SQ BID 3-4 Higher Order ONE of the following medications: *Heparin 5000 units SQ TID *Enoxaparin/Lovenox 40 mg SQ daily (WT < 150 kg, CrCl > 30 mL/min) *Enoxaparin/Lovenox 30 mg SQ daily (WT < 150 kg, CrCl > 10-29 mL/min) *Enoxaparin/Lovenox 30 mg SQ BID (WT < 150 kg, CrCl > 30 mL/min) AND/OR *Sequential Compression Device (SCD) 5 or more Highest Order ONE of the following medications: *Heparin 5000 units SQ TID (Preferred with Epidurals) *Enoxaparin/Lovenox 40 mg SQ daily (WT < 150 kg, CrCl > 30 mL/min) *Enoxaparin/Lovenox 30 mg SQ daily (WT < 150 kg, CrCl > 10-29 mL/min) *Enoxaparin/Lovenox 30 mg SQ BID (WT < 150 kg, CrCl > 30 mL/min) AND *Sequential Compression Device (SCD) Assessment and Plan - Assessment (1) SIRS (systemic inflammatory response syndrome) Code(s): R65.10 - Systemic inflammatory response syndrome (SIRS) of non- infectious origin without acute organ dysfunction Status: Acute (2) Increased nausea and vomiting Code(s): R11.2 - Nausea with vomiting, unspecified Status: Acute (3) Acute pancreatitis Code(s): K85.90 - Acute pancreatitis without necrosis or infection, unspecified Status: Acute (4) Acute hypokalemia Code(s): E87.6 - Hypokalemia Status: Acute (5) Status post total knee replacement, right Code(s): Z96.651 - Presence of right artificial knee joint Status: Acute - Plan 73-year-old female with SIRS Likely secondary to Acute Pancreatitis Start Empiric Zosyn and monitor Cultures Acute Pancreatitis CT abdomen/Pelvis noted and reviewed with Findings are most consistent with mild pancreatitis; despite normal lipase level Secondary to Elevated WBC, will start patient on empiric Zosyn Keep NPO, IVF hydration and parenteral pain management Intractable Nausea and vomiting Likely 2/2 Constipation d/t opioid vs Pancreatitis Antiemetic PRN Constipation 2/2 opioid Patient had a positive BM in the ED Continue with stool softener Hypokalemia Replace electrolytes and monitor Recent right total knee replacement Consult PT Resume Lovenox for DVT prophylaxis Pain management accordingly Hypertension Vasotec as needed DVT prophylaxis: Lovenox
[2018-07-30] MEDS: Sod Chloride 0.9% Inj 1,000 ML IV.CONT SCH (16:32)
[2018-07-30] MEDS ORDERED: Enoxaparin Inj 40 MG/0.4 ML Syringe SQ SCH (17:00)
[2018-07-30] MEDS: Morphine Sulfate Inj 2 MG/ML Vial IV.PUSH PRN ×3 (17:01→23:11)
[2018-07-30] MEDS: Senna/Docusate Sodium 8.6/50 MG Tablet PO SCH ×2 (19:42→21:03)
[2018-07-30] MEDS: Piperacil/Tazo 3.375 GM Premix 50 ML IV.SIG SCH (21:24)
[2018-07-31] MEDS: Sod Chloride 0.9% Inj 1,000 ML IV.CONT SCH ×2 (01:23→12:24)
[2018-07-31] MEDS: Morphine Sulfate Inj 2 MG/ML Vial IV.PUSH PRN ×3 (02:11→08:55)
[2018-07-31] MEDS: Piperacil/Tazo 3.375 GM Premix 50 ML IV.SIG SCH ×2 (05:01→15:03)
[2018-07-31 06:19] LABS: Baso # (Auto) 0.8 th/mm3 (0.0-0.2); Baso % (Auto) 3.8 % (0.0-2.0); Eos % (Auto) 0.2 % (0.0-4.0); Hematocrit 31.5 % (35.0-46.0); Hemoglobin 10.1 gm/dL (11.6-15.3); Lymph # (Auto) 1.6 th/mm3 (1.0-4.8); Lymph % (Auto) 8.2 % (9.0-44.0); Mean Corpuscular HGB Conc 32.1 % (32.0-36.0); Mean Corpuscular Hemoglobin 31.8 pg (27.0-34.0); Mean Platelet Volume 8.3 fL (7.0-11.0); Mono # (Auto) 0.8 th/mm3 (0.0-0.9); Mono % (Auto) 3.9 % (0.0-8.0); Neut # (Auto) 16.6 th/mm3 (1.8-7.7); Neut % (Auto) 83.9 % (16.0-70.0); Platelet Count 297 th/mm3 (150-450); Red Blood Count 3.18 mil/mm3 (4.00-5.30); Red Cell Distribution Width 12.9 % (11.6-17.2); White Blood Count 19.8 th/mm3 (4.0-11.0)
[2018-07-31 06:56] LABS: Platelet Estimate Normal (Normal); Platelet Morphology Normal (Normal); RBC Morphology Normal (Normal)
[2018-07-31] MEDS: Senna/Docusate Sodium 8.6/50 MG Tablet PO SCH (08:55)
[2018-07-31] MEDS ORDERED: Pantoprazole Inj 40 MG Vial IV.PUSH SCH (09:00)
[2018-07-31] MEDS ORDERED: Pantoprazole Sodium 20 MG DR Tablet PO SCH (09:00)
[2018-07-31] MEDS ORDERED: Lisinopril 20 MG Tablet PO SCH (09:00)
--- NOTE | 2018-07-31 09:51 | P.PN ---
Subjective Interval history: Follow-up mild pancreatitis/intractable nausea and vomiting/abdominal pain July 31, 2018-patient seen and examined, reported improvement of abdominal pain, nausea and vomiting. Would like to try some liquid this a.m. WBC trending down. Afebrile Physical Exam Vital signs: Vital Signs 07/30/18 10:35 07/30/18 10:45 07/30/18 11:05 Temperature Pulse Rate 112 H 119 H 114 H Respiratory Rate 16 16 Blood Pressure 173/94 H 161/108 H Pulse Oximetry 93 L 92 L 07/30/18 12:00 07/30/18 13:11 07/30/18 13:30 Temperature Pulse Rate 118 H 119 H 105 H Respiratory Rate 16 16 16 Blood Pressure 167/102 H 166/77 H Pulse Oximetry 93 L 95 07/30/18 14:00 07/30/18 14:41 07/30/18 16:00 Temperature 98.9 F Pulse Rate 110 H 118 H Respiratory Rate 16 16 20 Blood Pressure 173/87 H 173/96 H Pulse Oximetry 94 L 07/30/18 20:00 07/31/18 00:12 07/31/18 08:00 Temperature 99.2 F 98 F 98.7 F Pulse Rate 118 H 116 H 112 H Respiratory Rate 18 18 22 Blood Pressure 179/96 H 169/93 H 159/91 H Pulse Oximetry 93 L 92 L 95 Intake & Output 07/30/18 07/31/18 07/31/18 18:59 06:59 18:59 Intake Total 2400 / 2400 1100 / 1100 0 / 0 Output Total 200 / 200 Balance 2400 / 2400 1100 / 1100 -200 / -200 Weight 78 kg 78.3 kg Intake: IV 2400 / 2400 1100 / 1100 NS Inj 1,000 ML @ 100 mls/hr IV 1000 / 1000 .CONT .Q10H JACLYN Rx#:[id number] Zosyn 3.375 GM Premix 50 ML @ 50 / 50 100 / 100 100 mls/hr IV.SIG Q8H JACLYN Rx#: [id number] KCl 20 mEq Premix Inj 20 meq In 100 / 100 100 ml @ 50 mls/hr IV.SIG ONCE ONE Rx#:[id number] NS Inj 1,000 ML @ Wide Open IV. 1999 / 1999 SIG BOLUS JACLYN Rx#:[id number] Vancomycin Inj 1,000 MG In NS 250 / 250 Inj 250 ML @ 250 mls/hr IV.SIG ONCE ONE Rx#:[id number] Oral 0 / 0 0 / 0 Output: Urine 200 / 200 Other: # Voids 1 10 Date of Last Bowel Movement 07/26/18 07/26/18 Narrative: GENERAL: NAD SKIN: Warm and dry. HEAD: Atraumatic. Normocephalic. EYES: Pupils equal and round. No scleral icterus. No injection or drainage. ENT: No nasal bleeding or discharge. Mucous membranes pink and moist. NECK: Trachea midline. No JVD. CARDIOVASCULAR: Regular rate and rhythm. RESPIRATORY: No accessory muscle use. Clear to auscultation. Breath sounds equal bilaterally. GASTROINTESTINAL: Abdomen soft, nontender, nondistended. Hepatic and splenic margins not palpable. +BS MUSCULOSKELETAL: Extremities without clubbing, cyanosis, or edema. No obvious deformities. NEUROLOGICAL: Awake and alert. No obvious cranial nerve deficits. Motor grossly within normal limits. Five out of 5 muscle strength in the arms and legs. Normal speech. PSYCHIATRIC: Appropriate mood and affect; insight and judgment normal. Results - Labs CBC & Chem 7: 07/31/18 05:46 07/30/18 10:30 Laboratory Results - last 24 hr 07/30/18 07/30/18 07/30/18 10:30 10:30 10:50 CBC w Diff Auto diff final WBC 21.6 H RBC 3.39 L Hgb 11.3 L Hct 32.7 L MCV 96.2 MCH 33.4 MCHC 34.7 RDW 13.3 Plt Count 322 MPV 9.2 Neut % (Auto) 92.8 H Lymph % (Auto) 4.0 L [place] % (Auto) 2.1 Eos % (Auto) 0.0 Baso % (Auto) 1.1 Neut # (Auto) 20.0 H Lymph # (Auto) 0.9 L [place] # (Auto) 0.5 Eos # (Auto) 0.0 Baso # (Auto) 0.2 WBC Differential . Diff Scan Differential Comment . Platelet Estimate Platelet Morphology RBC Morphology Sodium 140 Potassium 3.0 L Chloride 98 Carbon Dioxide 30.9 Anion Gap 11 BUN 9 Creatinine 0.59 Estimated GFR Greater than 89 Random Glucose 92 Lactic Acid Calcium 8.1 L Total Bilirubin 0.9 AST 23 ALT 16 Alkaline Phosphatase 79 Total Protein 6.7 Albumin 2.8 L Lipase 66 L Urine Color Yellow Urine Clarity Clear Urine pH 7.[address] 1.010 Urine Protein Negative Urine Glucose (UA) Negative Urine Ketones Negative Urine Occult Blood Trace Urine Nitrate Negative Urine Bilirubin Negative Urine Urobilinogen 0.2 Ur Leukocyte Esterase Negative Urine RBC 0-3 Urine WBC 0-5 Micro UA Comment Culture not ind Ur Microscopic Review Microscopic reviewed Urine Culture Comments Culture not ind 07/30/18 07/31/18 13:04 05:46 CBC w Diff Slide review pending WBC 19.8 H RBC 3.18 L Hgb 10.1 L Hct 31.5 L MCV 99.0 MCH 31.8 MCHC 32.1 RDW 12.9 Plt Count 297 MPV 8.3 Neut % (Auto) 83.9 H Lymph % (Auto) 8.2 L [place] % (Auto) 3.9 Eos % (Auto) 0.2 Baso % (Auto) 3.8 H Neut # (Auto) 16.6 H Lymph # (Auto) 1.6 [place] # (Auto) 0.8 Eos # (Auto) 0.0 Baso # (Auto) 0.8 H WBC Differential . Diff Scan Auto diff confirmed Differential Comment . Platelet Estimate Normal Platelet Morphology Normal RBC Morphology Normal Sodium Potassium Chloride Carbon Dioxide Anion Gap BUN Creatinine Estimated GFR Random Glucose Lactic Acid 1.2 Calcium Total Bilirubin AST ALT Alkaline Phosphatase Total Protein Albumin Lipase Urine Color Urine Clarity Urine pH Ur Specific Loop Urine Protein Urine Glucose (UA) Urine Ketones Urine Occult Blood Urine Nitrate Urine Bilirubin Urine Urobilinogen Ur Leukocyte Esterase Urine RBC Urine WBC Micro UA Comment Ur Microscopic Review Urine Culture Comments - Imaging Impressions Abdomen/Pelvis CT 07/30/18 10:07 CONCLUSION: 1. Inflammatory stranding extending from the region the pancreatic head inferiorly. Pancreas enhances uniformly and there is no ductal dilatation or peripancreatic fluid collections. Findings are most consistent with mild pancreatitis. Clinical correlation with pancreatic enzymes is recommended. 2. [id number]-dj-[id number] amount stool in the rectum. Otherwise, no evidence for significant colonic stool or obstruction. 3. Colonic diverticulosis without evidence for diverticulitis. Chest X-Ray 07/30/18 11:32 CONCLUSION: 1. No acute abnormality or significant interval change. Assessment and Plan - Assessment (1) SIRS (systemic inflammatory response syndrome) Code(s): R65.10 - Systemic inflammatory response syndrome (SIRS) of non- infectious origin without acute organ dysfunction Status: Acute (2) Increased nausea and vomiting Code(s): R11.2 - Nausea with vomiting, unspecified Status: Acute (3) Acute pancreatitis Code(s): K85.90 - Acute pancreatitis without necrosis or infection, unspecified Status: Acute (4) Acute hypokalemia Code(s): E87.6 - Hypokalemia Status: Acute (5) Status post total knee replacement, right Code(s): Z96.651 - Presence of right artificial knee joint Status: Acute - Plan 73-year-old female with SIRS-Resolved Likely secondary to Acute Pancreatitis Currently on Empiric Zosyn and monitor Cultures Acute Pancreatitis-Improving CT abdomen/Pelvis noted and reviewed with Findings are most consistent with mild pancreatitis; despite normal lipase level Secondary to Elevated WBC, currently on on empiric Zosyn Start Clears and ADAT, continue IVF hydration and parenteral pain management Intractable Nausea and vomiting-improving Start Clears and ADAT Likely 2/2 Constipation d/t opioid vs Pancreatitis Antiemetic PRN Constipation 2/2 opioid Patient had a positive BM in the ED Continue with stool softener Hypokalemia Replace electrolytes and monitor Recent right total knee replacement PT to treat and eval On Lovenox for DVT prophylaxis Pain management accordingly Hypertension Vasotec as needed DVT prophylaxis: Lovenox Discharge patient to home Condition on discharge: Improved Regular Diet as tolerated Ad Lindsey activity Rx written: None Follow-up with primary care physician
[2018-07-31] MEDS ORDERED: Potassium Chloride 25 MEQ Effervescent Tablet PO ONE (10:00)
[2018-07-31 12:30] VITALS: PULSE 81; RESP 20; TEMP 97.8; O2SAT 96
[2018-07-31 12:33] LABS: Alanine Aminotransferase 14 U/L (10-53); Albumin 2.4 g/dL (3.4-5.0); Alkaline Phosphatase 82 U/L (45-117); Anion Gap 9 meq/L (5-15); Aspartate Aminotransferase 11 U/L (15-37); Blood Urea Nitrogen 6 mg/dL (7-18); Calcium 7.2 mg/dL (8.5-10.1); Carbon Dioxide 31.3 meq/L (21.0-32.0); Chloride 101 meq/L (98-107); Glomerular Filtration Rate Greater Than 89 mL/min (>89); Glucose,Random 106 mg/dL (74-106); Lipase 59 U/L (73-393); Sodium 141 meq/L (136-145); Total Protein 6.3 g/dL (6.4-8.2)
[2018-07-31 12:39] LABS: Potassium 2.6 meq/L (3.5-5.1)
--- NOTE | 2018-07-31 14:06 | P.DCO ---
- Diagnosis (1) SIRS (systemic inflammatory response syndrome) Status: Acute (2) Increased nausea and vomiting Status: Acute (3) Acute pancreatitis Status: Acute (4) Status post total knee replacement, right Status: Acute - Physical Therapy Order: Evaluate and treat - Certification I have seen patient Lala aRchel on 07/31/18. My clinical findings support the need for the requested home health care services because: Limited mobility due to disease progression I certify that my clinical findings support that this patient is homebound because: Post-op weakness
[2018-07-31 14:35] VITALS: BP 162/89
== END 2018-07-31 15:57 | disposition home or self-care (01) ==
LOC: PHEDA 09:18 → PHED 09:18 → PH3 14:35
PROVIDERS: ADMIT Hospitalist; ATTEND Hospitalist